=== PATIENT | female | born 1980 | race Caucasian/White ===

== ENCOUNTER 2017-07-29 17:52 | Emergency (ER) | payer MEDICAID, OTHER ==
[2017-07-29] MEDS: METOCLOPRAMIDE 10 MG INJ IV (22:40)
[2017-07-29] MEDS: SOD CHLORIDE 0.9% 1,000 ML IV (22:40)
[2017-07-29] MEDS: DIPHENHYDRAMINE 50 MG INJ IV (23:01)
== END 2017-07-29 23:51 | disposition home or self-care (01) ==
LOC: FTE 17:52
DX: R51 Headache (principal); R11.10 Vomiting, unspecified
CPT/HCPCS: 96374; 99284-25

== ENCOUNTER 2017-12-26 09:34 | Emergency (ER) | payer MEDICAID ==
[2017-12-26 10:13] LABS: ADD MAN DIFF? NO
[2017-12-26 10:30] LABS: WHITE BLOOD COUNT 9.3 10^3/ul (4.8-10.8)
[2017-12-26 10:30] LABS: BASOPHILS % 0.1 % (0.0-2.0); EOSINOPHILS # 0.1 10^3/ul (0.0-0.5); EOSINOPHILS % 1.1 % (0.0-7.0); HEMATOCRIT 28.2 % (37.0-47.0); HEMOGLOBIN 8.5 g/dl (12.0-16.0); LYMPHOCYTES # 2.6 10^3/ul (0.8-2.9); LYMPHOCYTES % 28.1 % (15.0-51.0); MEAN CORPUSCULAR HEMOGLOBIN 20.3 pg (29.0-33.0); MEAN CORPUSCULAR HGB CONC 30.1 g/dl (32.0-37.0); MEAN CORPUSCULAR VOLUME 67.5 fl (82.0-101.0); MEAN PLATELET VOLUME 10.5 fl (7.4-10.4); MONOCYTE # 0.5 10^3/ul (0.3-0.9); MONOCYTES % 5.4 % (0.0-11.0); NEUTROPHILS % 64.9 % (39.0-77.0); PLATELET COUNT 273 10^3/UL (140-415); RED BLOOD COUNT 4.18 10^6/ul (4.20-5.40); RED CELL DISTRIBUTION WIDTH 18.1 % (11.5-14.5)
[2017-12-26 10:44] LABS: UR CLARITY BLOODY (CLEAR); UR COLOR RED (YELLOW); UR TOTAL PROTEIN (Dip) 3+ mg/dl (NEGATIVE); URINE PH (Dip) 8.5 (5.0-9.0); URINE SPECIFIC GRAVITY (Dip) 1.015 (1.003-1.030)
[2017-12-26 10:45] LABS: UR BILIRUBIN (Dip) 3+ mg/dL (NEGATIVE); UR BLOOD (Dip) 3+ mg/dL (NEGATIVE); UR GLUCOSE (Dip) 1+ mg/dL (NEGATIVE); UR KETONES (Dip) 2+ mg/dL (NEGATIVE)
[2017-12-26 10:46] LABS: ADD UMIC YES; ALANINE AMINOTRANSFERASE 46 IU/L (13-69); ALBUMIN/GLOBULIN RATIO 1.25; ALKALINE PHOSPHATASE 103 IU/L (42-121); ANION GAP 14 (8-16); ASPARTATE AMINO TRANSFERASE 20 IU/L (15-46); BILIRUBIN,INDIRECT 0.7 mg/dl (0-1.1); BILIRUBIN,TOTAL 0.7 mg/dl (0.2-1.3); BLOOD UREA NITROGEN 10 mg/dl (7-20); CALCIUM 8.6 mg/dl (8.4-10.2); CARBON DIOXIDE 23 mmol/L (21-31); CHLORIDE 111 mmol/L (97-110); CREATININE 0.58 mg/dl (0.44-1.00); GLUCOSE 110 mg/dl (70-220); LIPASE 34 U/L (23-300); POTASSIUM 4.2 mmol/L (3.5-5.1); SODIUM 144 mmol/L (135-144); TOTAL PROTEIN 7.2 g/dl (6.1-8.1); UR LEUKOCYTE ESTERASE (Dip) 3+ Leu/ul (NEGATIVE); UR NITRITE (Dip) NEGATIVE (NEGATIVE); UR UROBILINOGEN (Dip) 4.0 E.U./dL mg/dL (NEGATIVE)
[2017-12-26 10:47] LABS: URINE RBCS >200 /HPF (0)
[2017-12-26 10:48] LABS: UR SQUAMOUS EPITHELIAL CELL RARE /HPF (FEW)
[2017-12-26 10:52] LABS: UR BACTERIA FEW /HPF (NONE SEEN)
== END 2017-12-26 14:18 | disposition home or self-care (01) ==
LOC: FTE 09:34
DX: N93.9 Abnormal uterine and vaginal bleeding, unspecified (principal); R10.2 Pelvic and perineal pain
CPT/HCPCS: 36415; 76830; 76856; 80053; 81001; 81025; 83690; 84703; 85025; 86850; 86900; 86901; 99284-25